=== PATIENT | male | born 1960 | race Caucasian/White ===

== ENCOUNTER 2018-09-18 06:12 | Emergency (ER) | payer OTHER ==
[~2018-09-18] VITALS: Ht 167.6 cm; Wt 85.1 kg
--- NOTE | 2018-09-18 06:25 | NUR ---
PT HERE STATING BACK SURGERY AND CARDIAC STENT PLACED 10 YEARS AGO, SAW A PAIN MANAGEMENT DR HERE TRYING TO WEAN OFF BUPROPION, GIVEN RX FOR TIZANIDINE 4MG, PT IS NOW COMPLAINING HEADACHE, BACK ASCHE, UNALB TO SLEEP.
[2018-09-18] MEDS ORDERED: TIZA4CAP PO (06:28)
--- NOTE | 2018-09-18 06:31 | NUR ---
PT WAS ON BUPRENORPHINE AND RECENTLY WEANED FROM THAT. 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 PT IS PLEASANT AND IN OBVIOUS DISCOMFORT.
[2018-09-18] MEDS ORDERED: LORazepam 1MG TABLET ONE (06:34)
[2018-09-18] MEDS ORDERED: LORazepam 1MG TABLET PO ONE (07:00)
--- NOTE | 2018-09-18 07:00 | NUR ---
REPORT FROM [facility]LO[facility], ASSUME CARE OF PT AT THIS TIME.
[2018-09-18 07:10] LABS: BASOPHILS # (AUTO) 0.06 x10^3/uL (0-0.1); BASOPHILS % (AUTO) 1 % (0-1); EOSINOPHILS % (AUTO) 2 % (1-7); LYMPHOCYTES # (AUTO) 2.93 x10^3/uL (1-3.4); LYMPHOCYTES % (AUTO) 29 % (22-44); MD NO; MEAN CORPUSCULAR HEMOGLOBIN 28.9 pg (27.5-34.5); MEAN CORPUSCULAR HGB CONC 32.5 g/dL (33.2-36.2); MEAN CORPUSCULAR VOLUME 88.9 fL (81-97); MONOCYTES # (AUTO) 0.68 x10^3/uL (0.2-0.8); MONOCYTES % (AUTO) 7 % (2-9); NEUTROPHILS # (AUTO) 6.41 x10^3/uL (1.8-6.8); NEUTROPHILS % (AUTO) 62 % (42-75); PLATELET COUNT 285 x10^3/uL (130-400); RED CELL DISTRIBUTION WIDTH 15.4 % (9.4-14.8)
[2018-09-18 07:19] LABS: ALANINE AMINOTRANSFERASE 24 U/L (12-78); ALBUMIN 4.3 g/dL (3.4-5.0); ANION GAP 6 mmol/L (5-15); CALCIUM 8.6 mg/dL (8.5-10.1); CHLORIDE 109 mmol/L (98-107)
[2018-09-18 07:23] LABS: ALKALINE PHOSPHATASE 52 U/L (45-117); BILIRUBIN,TOTAL 0.5 mg/dL (0.2-1.0); TOTAL PROTEIN 6.7 g/dL (6.4-8.2); TROPONIN I < 0.015 ng/mL (0.000-0.045)
--- NOTE | 2018-09-18 07:36 | NUR ---
URINE COLLECTED/SENT TO LAB. VSS/UPDATED IN COMPUTER.
[2018-09-18 07:37] VITALS: BP 155/90
[2018-09-18 07:49] LABS: MICROSCOPIC NOT IND
[2018-09-18 07:52] LABS: CULTURE INDICATED? NO
== END 2018-09-18 08:17 | disposition home or self-care (01) ==
LOC: ED 07:50
DX: F19.20 Other psychoactive substance dependence, uncomplicated (principal); F41.1 Generalized anxiety disorder; M54.9 Dorsalgia, unspecified; R51 Headache; Z87.891 Personal history of nicotine dependence
CPT/HCPCS: 36415; 80053; 81003; 84484; 85025; 93005; 99284